=== PATIENT | female | born 1990 | race Caucasian/White ===

== ENCOUNTER → 2016-05-18 | Outpatient (CLI) | payer OTHER | LOC: M LRY 13:40 | PROVIDERS: ATTEND Obstetrics & Gynecology | DX: E28.2 Polycystic ovarian syndrome (principal) ==

== ENCOUNTER → 2017-08-26 | Outpatient (REF) | payer OTHER ==
[2017-08-26 20:17] LABS: HEMATOCRIT 41.6 % (36.0-47.0); HEMOGLOBIN 13.1 g/dl (12.0-15.5)
[2017-08-26 20:25] LABS: CONTROL LINE HCG INT CTR LINE PRESENT; HCG, SERUM QUALITATIVE NEGATIVE (NEGATIVE)
[2017-08-26 20:38] LABS: TESTOSTERONE 39 NG/DL (14-76)
[2017-08-26 20:38] LABS: ESTRADIOL 35.9 PG/ML; FOLLICLE STIMULATING HORMONE 6.4 mIU/mL; LUTEINIZING HORMONE 1.1 mIU/mL; PROLACTIN 5.8 NG/ML
[2017-08-26 21:33] LABS: FREE T4 0.97 NG/DL (0.76-1.46)
== END ==
LOC: M SFHCLERA 15:27
DX: N91.1 Secondary amenorrhea (principal)
CPT/HCPCS: 83001